=== PATIENT | male | born 1955 | race African-American/Black ===

== ENCOUNTER 2020-08-08 13:03 | Emergency (ER) | payer MEDICARE, MEDICAID, SELFPAY ==
[2020-08-08 13:04] VITALS: BP 132/89; PULSE 96; RESP 18; TEMP 37.2; O2SAT 97; BMI 20.1
--- NOTE | 2020-08-08 13:21 | XR_ITS ---
PROCEDURE: XR HAND RT MIN 3V Referring Doctor: Kelvin Jett Patient Age:65Y CLINICAL INDICATION: unable to straighten right hand out COMPARISON: No exams were available for comparison TECHNIQUE: Right hand 3 View AP, Oblique, Lateral FINDINGS: Right hand intact. No fracture or dislocation. No lytic or blastic change. There is normal mineralization. The joint spaces are well-preserved. With no remarkable arthritic changes but no erosive changes. There is flexion of the fingers most pronounced at 5th finger and 4th finger and to less degree 3rd and 2nd finger. I see no findings at the palm of the hand associated. No swelling or radiopaque foreign bodies. If anything there seems to be some relative atrophy at the soft tissues of hand compared to the fingers 3rd. IMPRESSION: No fracture or dislocation . Flexion at the fingers noted with no other associated osseous findings-. Specifically note joint spaces are well maintained throughout the hand the and visualized portions wrist.. No erosive changes Dictated by: Daniel Garcia MD 08/08/2020 16:12 Daniel Garcia MD in [place] 08/08/2020 16:12
[2020-08-08 13:43] VITALS: BP 123/84; PULSE 87; O2SAT 97
--- NOTE | 2020-08-08 14:10 | HMH.EDGENADL ---
ED Disposition Clinical Impression: Contracture, right hand Disposition: Xfer Intermediate Care Fac Condition on Discharge: Good Instructions: DI for Muscle Weakness Additional Instructions: It does appear the patient is suffering from right hand contracture, potentially Dupuytren's contracture. He needs to continue to use his right hand as much as possible to maintain function. He should follow-up with orthopedic/hand team for further treatment/recommendations. Patient return if any right hand pain, weakness, or other new concerning symptoms. Referrals: Brayden Duran MD [Primary Care Provider] - Eligio Anna MD [Staff Physician] - 7-14 days (Right hand contracture (Dupuytren's contracture possibly)) - Critical Care Critical Care Time: No Attestation: On 08/08/20, the high probability of a clinically significant, sudden or life threatening deterioration of the following system(s) required my full and direct attention, intervention and personal management. The time I documented below is in addition to time spent performing reported procedures but includes the following listed in this critical care notation. Medical Decision Making - Medical Records Medical records reviewed: Yes: I reviewed the patient's medical records. - Deo Inquiry Pt receiving controlled substance: No Vital Signs: 08/08/20 13:04 08/08/20 13:43 08/08/20 14:12 Temperature 99.0 F Temperature Source Oral Pulse Rate [Right Radial] 96 H 87 89 Respiratory Rate 18 Blood Pressure [Right Arm] 132/89 123/84 118/83 Blood Pressure Mean [Right Arm] 103 97 94 Blood Pressure Source [Right Arm] Automatic Cuff Automatic Cuff Automatic Cuff Blood Pressure Position [Right Arm] Sitting Sitting Sitting 02 Sat by Pulse Oximetry 97 97 98 Oxygen Delivery Method Room Air Room Air Room Air 08/08/20 14:51 08/08/20 15:06 Temperature Temperature Source Pulse Rate [Right Radial] 89 99 H Respiratory Rate Blood Pressure [Right Arm] 120/80 114/82 Blood Pressure Mean [Right Arm] 93 92 Blood Pressure Source [Right Arm] Automatic Cuff Automatic Cuff Blood Pressure Position [Right Arm] Sitting Sitting 02 Sat by Pulse Oximetry 97 98 Oxygen Delivery Method Room Air Room Air Orders (Tests/Meds): ORDERS Category Date Time Status XR hand RT min 3V Stat Exams 08/08/20 13:21 Taken Medical Decision Narrative: Patient 65-year-old male present with right hand complaint. Patient does present with what may be looks to be Dupuytren's contracture. This has been going on for several weeks to months it sounds. X-rays obtained in the emergency department based on my read do not show any obvious bony abnormality. Patient does have difficulty fully extending his right fourth and fifth digits but does have good hearing screen coordinator strength with no motor or sensory deficits. At this time, I do believe he would benefit from following up with hand surgery team on a nonemergent basis. He will be referred to orthopedic surgery team to follow-up within the next 1 to 2 weeks as there are some treatments that can be available to try to help him preserve as much function in his right hand as possible. Currently he does have good function in his right hand. Patient will return to the emergency department if unable to secure follow-up with orthopedics, right hand pain, or other new concerning symptoms. Assessment: Right hand contracture Disposition: Home with hand surgery follow-up General Adult HPI - General Chief complaint: Weakness Stated complaint: weakness Time Seen by Provider: 08/08/20 14:20 Mode of Arrival: EMS Limitations: No Limitations Description of Symptoms (Recalled from ER Triage Doc. by RN): Pt sent to ER for evaluation r/t not being able to straighten out his R hand. Pt reports has been going on for approx 3 weeks. Staff at [facility] pt woke up at approx 8 am unable straighten out his hand. Upon arrival to ED pt can hold hand up can move finge
[2020-08-08 14:12] VITALS: BP 118/83; PULSE 89; O2SAT 98
[2020-08-08 14:51] VITALS: BP 120/80; PULSE 89; O2SAT 97
[2020-08-08 15:06] VITALS: BP 114/82; PULSE 99; O2SAT 98
--- NOTE | 2020-08-08 15:42 | PC.NURSE ---
report given to Karrie Mccarty LPN at [facility] contacted [facility] to transport pt.
[2020-08-08 16:25] VITALS: BP 111/79; PULSE 80; RESP 17; TEMP 37.2; O2SAT 98
== END 2020-08-08 16:26 | disposition home or self-care (01) ==
PROVIDERS: Emergency Provider Emergency Medicine; PCP Internal Medicine Adolescent Medicine
DX: M24.541 Contracture, right hand (principal)
CPT/HCPCS: 73130; 99284

== ENCOUNTER → 2020-09-27 10:32 | Outpatient (CLI) | payer MEDICARE, MEDICAID, SELFPAY ==
--- NOTE | 2020-09-27 10:38 | FL_ITS ---
PROCEDURE: FL BARIUM SWALLOW MODIFIED CLINICAL INDICATION: DYSPHAGIA COMPARISON: No exams were available for comparison TECHNIQUE: Patient administered varying consistencies of barium contrast, while viewed in lateral position under real-time fluoroscopy with cine recording. FLUOROSCOPY TIME:2.43 seconds. The study was performed in conjunction with speech pathologist. Please see that report & recommendations. FINDINGS: Patient was given varying consistencies of barium. Premature spillage of barium interval likely and piriform sinuses is noted with thin liquids with cup, pureed food and solids. No evidence of aspiration is noted. IMPRESSION: Premature spillage of barium into piriform sinuses and vallecula. No evidence of aspiration or penetration to the cords. Please see speech pathologist report and recommendations. Dictated by: Chayito Anna 09/28/2020 10:56 Chayiot Anna in [facility] 09/28/2020 10:56
--- NOTE | 2020-09-27 11:34 | HMH.SLMBS2 ---
Speech & Language Evaluation Speech/Language Mod Barium Swallow Start: 09/27/20 11:20 Freq: once Status: Complete Protocol: Document 09/27/20 11:20 SHAWN (Rec: 09/27/20 11:34 SHAWN [id number]) General Information General Current Food Consistancy NPO Dentition Edentulous Oxygen Status Room Air Facial Symmetry Symmetrical Patient Orientation Person,Place Communication Ability No Impairment MBS Recommendations Diet Dietary Recommendations Pureed,Thin Liquids Treatment/Strategies Treatment Recommendation Resistive Sucking Exer.,Base of Tongue Exercises,Compens. Strategy Educat. Strategy/Precaution Recommend Sitting Upright (90 deg),No Straw,Small Bites and Sips, Alternate Liquids/Solids Mod Barium Swallow Impressions Summary and Impressions Oral Phase Impression Mild Impairment Oral Phase Summary Mr. Stafford was given the following consistencies: thins via straw and open cup, pureed, mechanical soft, and pill with thin wash. Mr. Stafford did exhibit difficulty sucking from a straw. Pharyngeal Phase Summary Mr. Stafford exhibited premature spillage over the back of the tongue with all consistencies into valleculae and pyriform sinuses. No aspiration noted during evaluation. He is at risk for fatigue due to prolonged NPO status. It is recommended that he be placed on pureed diet with thin liquids. Speech/Language MBS Assessment/Goals/Plan Assessment Date of Evaluation: 09/27/20 Evaluation Type Initial Certification Assessment/Problems Determine least restrictive diet Does Patient Qualify for Service No Qualify/Failure Comment Patient will be seen by [facility]. Plan Pt/Guardian verbally ack understanding Yes of dx/prognosis/goals G -code Required No Mod Barium Swallow Setup Exam Setup Radiologist Candelario Borrego Level of Consciousness Awake,Alert,Appropriate, Follows Commands Position (degrees) 90 Mod Barium Swallow-Lat View Textures Lateral View Food Presentation Thin Liquid via Cup,Thin
== END ==
PROVIDERS: PCP Internal Medicine Adolescent Medicine; Visit Provider Internal Medicine Adolescent Medicine
DX: R13.10 Dysphagia, unspecified (principal)
CPT/HCPCS: 70371; 92611

== ENCOUNTER → 2020-10-25 07:32 | Outpatient (CLI) | payer MEDICARE, MEDICAID, SELFPAY ==
[2020-10-25 08:11] LABS: Basophils % 0.5 % (0.1-2.0); Eosinophils # 0.2 K/mm3 (0.0-0.4); Eosinophils % 2.4 % (0.1-12.0); Hematocrit 41.2 % (42.0-52.0); Hemoglobin 13.3 g/dL (14.1-18.0); Lymphocytes # 2.4 K/mm3 (0.7-4.5); Lymphocytes % 29.2 % (10-50); Mean Corpuscular HGB Conc 32.3 g/dL (31.8-35.4); Mean Corpuscular Hemoglobin 29.1 pg (27.0-31.2); Mean Corpuscular Volume 90.1 fl (80-94); Mean Platelet Volume 7.5 fl (7.4-10.4); Monocytes # 0.4 K/mm3 (0.1-1.0); Monocytes % 5.3 % (1.7-9.3); Neutrophils # 5.1 K/mm3 (1.8-7.8); Neutrophils % 62.6 % (37.0-80.0); Platelet Count 279 K/mm3 (142-424); Red Blood Count 4.57 M/mm3 (4.60-6.20); Red Cell Distribution Width 14.3 % (11.5-17.5); White Blood Count 8.1 K/mm3 (4.8-10.8)
[2020-10-25 08:16] LABS: Chloride 98 mmol/L (98-107); Potassium 3.8 mmoL/L (3.5-5.1); Sodium 139 mmol/L (136-145)
[2020-10-25 08:18] LABS: Alanine Aminotransferase 18 U/L (12-78); Aspartate Amino Transferase 30 U/L (17-59); Blood Urea Nitrogen 12 mg/dl (9-20); Estimated Glomerular Filt Rate 167 ml/min (>60); GFR (African American) 202 ML/MIN (>60)
[2020-10-25 08:19] LABS: Albumin Level 4.8 g/dl (3.5-5.0); Albumin/Globulin Ratio 1.2 (1.1-1.8); Alkaline Phosphatase 119 U/L (38-126); Anion Gap 13.8 mEq/L (5-15); Bilirubin,Total 0.6 mg/dl (0.2-1.3); Calcium 10.1 mg/dl (8.4-10.2); Carbon Dioxide 31 mmol/L (22.0-30.0); Glucose 108 mg/dl (74-100); Total Protein,Serum 8.8 g/dl (6.3-8.2)
--- NOTE | 2020-10-25 08:32 | MR_ITS ---
PROCEDURE INFORMATION: Exam: MR Chest Without and With Contrast; Brachial Plexus Exam date and time: 10/25/2020 8:32 AM Age: 65 years old Clinical indication: Abnormal findings; Other: Neurological exam; Patient HX: Unable to bend fingers in lt hand. Unable to straighten fingers in RT hand; Additional info: Muscle weakness, contracture TECHNIQUE: Imaging protocol: MR chest without and with intravenous contrast. Exam focused on the brachial plexus. Contrast material: PROHANCE; Contrast volume: 9 ml; Contrast route: INTRAVENOUS (IV); COMPARISON: MR CERVICAL SPINE WO CON 10/25/2020 8:53 AM FINDINGS: Nerves: Unremarkable visualized nerves and brachial plexus. Soft tissues: Unremarkable Bones/joints: Unremarkable. Other findings: Marked distension of the visualized esophagus. IMPRESSION: Unremarkable brachial plexus.
--- NOTE | 2020-10-25 08:32 | MR_ITS ---
PROCEDURE: MR CERVICAL SPINE WO CON CLINICAL INDICATION: abnormal neurological exam Unable to bend fingers in lt hand. Unable to straighten fingers in rt hand. Weakness bilateral arms. No prior. COMPARISON: No exams were available for comparison TECHNIQUE: Standard multiplanar multiecho sequences are performed without contrast. 3-D MIP and myelographic images are also rendered and reviewed FINDINGS: There is normal alignment. Craniocervical junction has an unremarkable appearance. C2-C3: There is prominence of the posterior longitudinal ligament causing canal stenosis at 9 mm with minimal flattening of the cord centrally and anteriorly. C3-C4: Degenerative disc disease with broad-based bulging disc/disc osteophyte complex. There is 3 mm retrolisthesis of C3. There is canal stenosis at this level at 9 mm with minimal flattening of the cord anteriorly. Bilateral lateral recess and foraminal narrowing noted. C4-C5: Minimal endplate ridging slightly eccentric toward the left with mild bilateral lateral recess narrowing slightly greater on the left. C5-C6: Minimal bulging disc. C6-C7: Unremarkable. C7-T1: Unremarkable. IMPRESSION: 1. There are degenerative changes at C2-C3, C3-C4, and C4-C5 as detailed above. There is canal stenosis at C2-C3 and C3-C4. Please see above for detailed description. 2. No extruded herniated disc Dictated by: Candelario Borrego MD 10/26/2020 15:48 Candelario Borrego MD in [place] 10/26/2020 15:48
[2020-10-25 08:34] LABS: Erythrocyte Sedimentation Rate 27 mm/hr (0-20)
[2020-10-25 08:50] LABS: Thyroid Stimulating Hormone 4.22 uIU/mL (0.465-4.68)
[2020-10-25 10:08] LABS: Vitamin B12 732 pg/mL (239-931)
[2020-10-25 10:12] LABS: Folate > 20.00 ng/mL
[2020-10-27 14:24] LABS: Albumin 3.8 g/dL (2.9-4.4); Alpha-1-Globulin 0.3 g/dL (0.0-0.4); Gamma Globulin 1.5 g/dL (0.4-1.8); Protein, Total 8.3 g/dL (6.0-8.5)
[2020-10-27 15:13] LABS: Interpretation(See Below) Comment: (.); Rapid Plasma Reagin Ab Titer Non Reactive (NonRea<1:1)
[2020-10-29 10:12] LABS: Vitamin B1 177.9 nmol/L (66.5-200.0)
[2020-11-27 11:14] LABS: AChR Blocking Abs 21
[2020-11-27 11:16] LABS: AChR Modulating Ab <12; Anti-Striation (muscle) Abs NEGATIVE
== END ==
PROVIDERS: PCP Internal Medicine Adolescent Medicine; Visit Provider Nurse Practitioner Family
DX: G62.9 Polyneuropathy, unspecified (principal); M62.81 Muscle weakness (generalized); Z68.1 Body mass index [BMI] 19.9 or less, adult; R25.8 Other abnormal involuntary movements; R29.2 Abnormal reflex
CPT/HCPCS: 36415; 72141; 73220; 76376; 80053; 82525; 82607; 82746; 84155; 84165; 84238; 84425; 84443; 85025; 85651; 86255; 86334; 86592; 86618; A9576

== ENCOUNTER → 2021-08-26 11:43 | Outpatient (CLI) | payer MEDICARE, MEDICAID, SELFPAY ==
--- NOTE | 2021-08-26 11:49 | FL_ITS ---
FINAL REPORT CLINICAL HISTORY: check feeding tube placement FINDINGS: Fluoroscopy was utilized while contrast was injected through a patients recently replaced gastrostomy tube. Injection of the tube demonstrates that the gastrostomy tube is within the stomach. There is no extrravasation of contrast. IMPRESSION: Appropriately placed gastrostomy tube Reviewed, Interpreted and Dictated by Luis Miguel Retana III, MD Transcribed by EDISON Babcock Authenticated by Luis Miguel Retana III, MD on 09/05/2021 07:59:[address] [facility]
== END ==
PROVIDERS: PCP Internal Medicine Adolescent Medicine; Visit Provider Surgery
DX: Z78.9 Other specified health status (principal)
CPT/HCPCS: 49465

== ENCOUNTER 2022-10-28 21:57 | Emergency (ER) | payer MEDICARE, MEDICAID, SELFPAY ==
[2022-10-28 21:57] VITALS: BP 152/101; PULSE 109; RESP 16; TEMP 36.7; O2SAT 99; BMI 20.6
[2022-10-28 22:21] LABS: Basophils % 0.2 % (0.1-2.0); Eosinophils # 0.3 K/mm3 (0.0-0.4); Eosinophils % 1.4 % (0.1-12.0); Hematocrit 49.3 % (42.0-52.0); Lymphocytes # 2.1 K/mm3 (0.7-4.5); Lymphocytes % 11.4 % (10-50); Mean Corpuscular HGB Conc 32.5 g/dL (31.8-35.4); Mean Corpuscular Hemoglobin 29.9 pg (27.0-31.2); Mean Corpuscular Volume 91.9 fl (80-94); Mean Platelet Volume 7.7 fl (7.4-10.4); Monocytes # 0.7 K/mm3 (0.1-1.0); Neutrophils # 14.9 K/mm3 (1.8-7.8); Platelet Count 404 K/mm3 (142-424); Red Blood Count 5.36 M/mm3 (4.60-6.20); Red Cell Distribution Width 13.9 % (11.5-17.5)
[2022-10-28 22:22] LABS: Chloride 94 mmol/L (98-107); Sodium 143 mmol/L (136-145)
[2022-10-28 22:23] LABS: Potassium 3.8 mmoL/L (3.5-5.1)
[2022-10-28 22:25] LABS: Alanine Aminotransferase 46 U/L (12-78); Albumin Level 4.9 g/dl (3.5-5.0); Albumin/Globulin Ratio 0.9 (1.1-1.8); Alkaline Phosphatase 147 U/L (38-126); Anion Gap 15.8 mEq/L (5-15); Aspartate Amino Transferase 56 U/L (17-59); Bilirubin,Total 0.9 mg/dl (0.2-1.3); Blood Urea Nitrogen 22 mg/dl (9-20); Carbon Dioxide 37 mmol/L (22.0-30.0); Creatinine Clearance Estimated 59 mL/min (50-200); Estimated Glomerular Filt Rate 112 ml/min (>60); GFR (African American) 136 ML/MIN (>60); Globulin 5.5 g/dL (1.3-3.2); Total Protein,Serum 10.4 g/dl (6.3-8.2)
[2022-10-28 22:26] LABS: Calcium 9.9 mg/dl (8.4-10.2); Glucose 160 mg/dl (74-100); MANUAL DIFFERENTIAL MANUAL DIFFERENTIAL (MANUAL DIFF)
[2022-10-28 22:30] VITALS: BP 135/94; PULSE 112; O2SAT 96
--- NOTE | 2022-10-28 22:30 | CT_ITS ---
PROCEDURE INFORMATION: Exam: CTA Abdomen and Pelvis With Contrast Exam date and time: 10/28/2022 10:51 PM Age: 67 years old Clinical indication: Other: Distention; Additional info: Distention, possible gi bleed TECHNIQUE: Imaging protocol: Computed tomographic angiography of the abdomen and pelvis with contrast. 3D rendering (Not supervised by radiologist): MIP and/or 3D reconstructed images were created by the technologist. Radiation optimization: All CT scans at this facility use at least one of these dose optimization techniques: automated exposure control; mA and/or kV adjustment per patient size (includes targeted exams where dose is matched to clinical indication); or iterative reconstruction. Contrast material: ISOVUE; Contrast volume: 100 ml; Contrast route: INTRAVENOUS (IV); REPORTING DATA: Count of CT and Cardiac NM exams in prior 12 months: This patient has received 0 known CTs and 0 known cardiac nuclear medicine studies in the 12 months prior to the current study. COMPARISON: MR BRACHIAL PLEXUS RT W/WO CON 10/25/2020 9:32 AM FINDINGS: Tubes, catheters and devices: Percutaneous gastrostomy tube appears to be in good position. Aorta: No aortic aneurysm. No aortic dissection. Celiac trunk and mesenteric arteries: No occlusion or significant stenosis. Renal arteries: No occlusion or significant stenosis. Right iliac arteries: No occlusion or significant stenosis. Left iliac arteries: No occlusion or significant stenosis. Liver: No mass. Gallbladder and bile ducts: Unremarkable. No calcified stones. No ductal dilation. Pancreas: Unremarkable. No mass. No ductal dilation. Spleen: Unremarkable. No splenomegaly. Adrenal glands: Unremarkable. No mass. Kidneys and ureters: Unremarkable. No solid mass. No hydronephrosis. Stomach and bowel: Small area of density noted in the gastric antrum (axial images 36 through 38) raises concern for contrast extravasation indicating hemorrhage. A 2nd similar-appearing of dependent density in the ascending colon is noted on axial images 73 and 74. Density in the appendix and adjacent portion of the cecum has an appearance suggesting retained contrast, although hemorrhage not excluded. There is moderate sigmoid diverticulosis. No bowel wall thickening or evidence of obstruction. Appendix: No evidence of appendicitis Intraperitoneal space: Unremarkable. No free air. No significant fluid collection. Lymph nodes: Unremarkable. No enlarged lymph nodes. Urinary bladder: Unremarkable. No mass. Reproductive: Prostate gland is enlarged, measuring 5.2 cm in greatest diameter. Bones/joints: Moderate degenerative changes noted in the lumbar spine. No acute fracture. Moderate degenerative changes noted in the sacroiliac joints. Soft tissues: Unremarkable. IMPRESSION: 1. Two areas concerning for active GI bleed, one in the distal stomach and another in the ascending colon. Findings suggesting possible retained contrast in the appendix and lack of pre-contrast images makes findings equivocal, particularly in the colon. 2. Other incidental findings including prostatomegaly, sigmoid diverticulosis and chronic osseous changes. THIS REPORT CONTAINS FINDINGS THAT MAY BE CRITICAL TO PATIENT CARE. The findings were verbally communicated via telephone conference with KRISTIAN VIRK at 11:37 PM EDT on 10/28/2022. The findings were acknowledged and understood.
--- NOTE | 2022-10-28 22:32 | XR_ITS ---
PROCEDURE INFORMATION: Exam: XR Chest Exam date and time: 10/28/2022 10:57 PM Age: 67 years old Clinical indication: Other: Leukocytosis TECHNIQUE: Imaging protocol: Radiologic exam of the chest. Views: 1 view. COMPARISON: MR BRACHIAL PLEXUS RT W/WO CON 10/25/2020 9:32 AM FINDINGS: Lungs: There are findings suggesting bullous emphysema just to the right of midline in the mid chest. No significant active pulmonary infiltrate. Pleural spaces: Unremarkable. No pleural effusion. No pneumothorax. Heart/Mediastinum: Unremarkable. No cardiomegaly. Bones/joints: Unremarkable. IMPRESSION: Findings suggesting bullous emphysema. No acute disease
--- NOTE | 2022-10-28 22:37 | PC.NURSE ---
Dr. Delacruz at [facility]
[2022-10-28 22:47] LABS: Occult Blood,Stool Negative (Negative)
[2022-10-28 22:49] LABS: Eosinophils % 1 % (0-3); Lymphocytes % 12 % (10-50); Monocytes % 4 % (2-9); Neutrophils % 83 % (42-76); Total Cells Counted 100
[2022-10-28 22:50] LABS: Platelet Estimate Normal; RBC Morphology Normal
[2022-10-28 23:00] VITALS: BP 144/99; PULSE 102; O2SAT 96
--- NOTE | 2022-10-28 23:12 | HMH.EDGENADL ---
Discharge Plan Disposition Patient Disposition: Home, Self-Care Condition: Good Chief Complaint: Nausea/Vomiting/Diarrhea Prescriptions Prescriptions: No Action polyethylene glycol 3350 [Miralax] 17 gram/dose powder 17 g PO DAILY omeprazole 20 mg capsule,delayed release(DR/EC) 20 mg PO DAILY cholecalciferol (vitamin D3) 100 mcg (4,000 unit) capsule 100 mcg PO DAILY metoclopramide HCl 5 mg/5 mL solution 5 mg PO DAILY acetaminophen 500 mg capsule 500 mg PO Q6H PRN multivitamin liquid 5 ml PO DAILY Referrals Follow up/Referrals: Brayden Duran MD [Primary Care Provider] - See instructions Clinical Impressions Clinical Impression: Occult GI bleeding Instructions Patient Instructions: DI for Diarrhea and Traveler's Diarrhea -- Adult, DI for Diarrhea and Traveler's Diarrhea -- Child, DI for Nausea -- Adult, DI for Nausea -- Child Discharge ED Provider: Steven Delacruz General Adult HPI General Chief complaint: Nausea/Vomiting/Diarrhea Stated complaint: N/V Time Seen by Provider: 10/28/22 22:01 Mode of Arrival: EMS Source of Information: Patient and EMS Limitations: No Limitations Description of Symptoms (Recalled from ER Triage Doc. by RN): pt c/o vomitting and abd distention since yesterday. pt denies any abd pain History of Present Illness HPI narrative: 67yo M presents the ER from [facility] secondary to vomiting and abdominal distention. Patient reports he vomits all the time. Reports this episode began yesterday. Reports mild abdominal distention without significant pain. [facility] reported coffee-ground emesis. Patient denies. Patient reports that he just disconnected his tube feeding when he began vomiting. Related Data Home Medications Medication Instructions Recorded Confirmed acetaminophen 500 mg capsule 500 mg PO Q6H PRN 09/08/20 08/26/21 cholecalciferol (vitamin D3) 100 100 mcg PO DAILY 09/08/20 08/26/21 mcg (4,000 unit) capsule metoclopramide HCl 5 mg/5 mL oral 5 mg PO DAILY 09/08/20 08/26/21 solution omeprazole 20 mg capsule,delayed 20 mg PO DAILY 09/08/20 08/26/21 release polyethylene glycol 3350 17 17 g PO DAILY 09/08/20 08/26/21 gram/dose oral powder (Miralax) multivitamin 5 ml PO DAILY 10/18/20 08/26/21 Allergies Allergy/AdvReac Type Severity Reaction Status Date / Time No Known Allergies Allergy Verified 08/26/21 11:11 [facility] Disclaimer: The information contained in this section may have been updated after the patient was seen, as this information can be updated by other users. Social History Smoking Status: Never smoker alcohol intake: former substance use type: denies use current occupational status: disabled Travel in the last 8 weeks: None household members: caregiver housing: half-way ROS Obtained: Yes Systems reviewed as appropriate & no additional complaints except as documented Physical Exam General General appearance: alert and in no apparent distress Head Head exam: atraumatic Eye Eye exam: Present normal appearance Neck Neck exam: Present trachea midline Chest Chest inspection: Present symmetric chest wall rise Respiratory Respiratory exam: Present normal lung sounds bilaterally; Absent respiratory distress Cardiovascular Cardiovascular exam: Present regular rate, normal rhythm and normal heart sounds Abdominal Exam Abdominal exam: Present soft, distention (Mild) and normal bowel sounds; Absent tenderness, rebound or rigidity Extremities Exam Extremities exam: Present normal capillary refill; Absent tenderness Neurological Exam Neurological exam: Present alert and oriented X3 Psychiatric Psychiatric exam: Present normal affect Skin Skin exam: Present warm and dry Medical Decision Making Medical Records Medical records reviewed: Yes I reviewed the patient's medical records. Deo Delgadillo Pt receiving controlled substa
[2022-10-28 23:30] VITALS: BP 161/113; PULSE 110; O2SAT 97
--- NOTE | 2022-10-28 23:36 | PC.NURSE ---
Dr. Delacruz s/w MARY JANE
--- NOTE | 2022-10-28 23:43 | PC.NURSE ---
Dr. Delacruz s/w Dr. Franco
[2022-10-29] VITALS: BP 151/104; PULSE 110; O2SAT 97
[2022-10-29 00:24] LABS: Occult Blood,Gastric Fluid Positive (Negative)
--- NOTE | 2022-10-29 00:25 | PC.NURSE ---
Dr. Roger foster
[2022-10-29 00:39] LABS: Coronavirus 19, PCR Not Detected (NotDetected); Influenza A, PCR Not Detected (NotDetected); Influenza B, PCR Not Detected (NotDetected)
[2022-10-29 00:39] LABS: Microscopic, Urine URINE MICROSCOPIC (MICROSCOPIC)
--- NOTE | 2022-10-29 00:50 | PC.NURSE ---
repaged dr valentine @ this time
--- NOTE | 2022-10-29 00:51 | PC.NURSE ---
on phone with dr valentine
[2022-10-29 00:52] VITALS: BP 135/98; PULSE 108; RESP 20; TEMP 36.8; O2SAT 98
[2022-10-29 00:59] LABS: Appearance,Urine CLEAR (Clear); Bilirubin,Urine Negative (Negative); Blood, Urine Negative (Negative); Color,Urine YELLOW (Yellow); Glucose,Urine (UA) Negative (Negative); Ketones,Urine Negative (Negative); Leukocyte Esterase,Urine Negative (Negative); Nitrate,Urine Negative (Negative); Protein,Urine 1+ (Negative); Specific Gravity, Urine <= 1.005 (1.005-1.030); Urobilinogen,Urine 0.2 EU/dl (0.2)
--- NOTE | 2022-10-29 01:02 | PC.NURSE ---
Called and gave report to Carolina OLIVAREZ @ [facility]
[2022-10-29 01:11] LABS: Squamous Epithelial Cell,Urine Occasional #/hpf (0-5)
== END 2022-10-29 02:50 | disposition home or self-care (01) ==
PROVIDERS: Emergency Provider Family Medicine; PCP Internal Medicine Adolescent Medicine
DX: K92.2 Gastrointestinal hemorrhage, unspecified (principal); R11.2 Nausea with vomiting, unspecified; R19.7 Diarrhea, unspecified
CPT/HCPCS: 36415; 71045; 74174; 80053; 81001; 82272; 85007; 85025; 86850; 99285; C9803; G0328; Q9967; U0003; U0005

== ENCOUNTER → 2022-10-31 08:15 | Outpatient (CLI) | payer MEDICARE, MEDICAID, SELFPAY | PROVIDERS: PCP Internal Medicine Adolescent Medicine; Visit Provider Internal Medicine Adolescent Medicine | DX: K92.2 Gastrointestinal hemorrhage, unspecified (principal) ==

== ENCOUNTER → 2022-10-31 11:20 | Outpatient (CLI) | payer MEDICARE, MEDICAID, SELFPAY ==
[2022-10-31 11:37] LABS: Basophils # 0.1 K/mm3 (0-0.2); Basophils % 0.5 % (0.1-2.0); Eosinophils # 0.1 K/mm3 (0.0-0.4); Eosinophils % 0.8 % (0.1-12.0); Hematocrit 48.1 % (42.0-52.0); Hemoglobin 15.7 g/dL (14.1-18.0); Lymphocytes # 2.9 K/mm3 (0.7-4.5); Lymphocytes % 27.7 % (10-50); Mean Corpuscular HGB Conc 32.6 g/dL (31.8-35.4); Mean Corpuscular Hemoglobin 30.2 pg (27.0-31.2); Mean Corpuscular Volume 92.6 fl (80-94); Mean Platelet Volume 7.8 fl (7.4-10.4); Monocytes # 0.7 K/mm3 (0.1-1.0); Monocytes % 6.8 % (1.7-9.3); Neutrophils # 6.8 K/mm3 (1.8-7.8); Neutrophils % 64.2 % (37.0-80.0); Platelet Count 378 K/mm3 (142-424); Red Cell Distribution Width 13.6 % (11.5-17.5); White Blood Count 10.6 K/mm3 (4.8-10.8)
== END ==
PROVIDERS: PCP Internal Medicine Adolescent Medicine; Visit Provider Internal Medicine Adolescent Medicine
DX: K92.2 Gastrointestinal hemorrhage, unspecified (principal)
CPT/HCPCS: 85025

== ENCOUNTER → 2023-05-07 12:03 | Outpatient (CLI) | payer MEDICARE, MEDICAID, SELFPAY ==
[2023-05-07 12:39] LABS: Hematocrit 39.3 % (42.0-52.0); Hemoglobin 12.5 g/dL (14.1-18.0); Mean Corpuscular HGB Conc 31.9 g/dL (31.8-35.4); Mean Corpuscular Hemoglobin 23.8 pg (27.0-31.2); Mean Corpuscular Volume 74.6 fl (80-94); Red Blood Count 5.26 M/mm3 (4.60-6.20); White Blood Count 10.5 K/mm3 (4.8-10.8)
[2023-05-07 12:40] LABS: Basophils # 0.1 K/mm3 (0-0.2); Basophils % 0.4 % (0.1-2.0); Eosinophils # 0.2 K/mm3 (0.0-0.4); Eosinophils % 1.8 % (0.1-12.0); Lymphocytes # 2.2 K/mm3 (0.7-4.5); Lymphocytes % 20.8 % (10-50); Mean Platelet Volume 8.3 fl (7.4-10.4); Monocytes # 0.7 K/mm3 (0.1-1.0); Monocytes % 7.1 % (1.7-9.3); Neutrophils # 7.3 K/mm3 (1.8-7.8); Neutrophils % 69.9 % (37.0-80.0); Platelet Count 425 K/mm3 (142-424)
== END ==
PROVIDERS: PCP Nurse Practitioner Family; Visit Provider Nurse Practitioner Family
DX: J44.9 Chronic obstructive pulmonary disease, unspecified (principal)
CPT/HCPCS: 85025

== ENCOUNTER 2023-09-05 07:51 | Outpatient (CLI) | payer MEDICARE, MEDICAID, SELFPAY ==
[2023-09-05 08:07] LABS: Basophils % 0.4 % (0.1-2.0); Eosinophils # 0.1 K/mm3 (0.0-0.4); Eosinophils % 0.6 % (0.1-12.0); Hematocrit 41.7 % (42.0-52.0); Hemoglobin 13.3 g/dL (14.1-18.0); Lymphocytes # 1.7 K/mm3 (0.7-4.5); Mean Corpuscular HGB Conc 31.9 g/dL (31.8-35.4); Mean Corpuscular Hemoglobin 25.4 pg (27.0-31.2); Mean Corpuscular Volume 79.7 fl (80-94); Mean Platelet Volume 7.3 fl (7.4-10.4); Monocytes # 1.1 K/mm3 (0.1-1.0); Monocytes % 9.5 % (1.7-9.3); Neutrophils # 8.6 K/mm3 (1.8-7.8); Neutrophils % 74.6 % (37.0-80.0); Platelet Count 358 K/mm3 (142-424); Red Blood Count 5.23 M/mm3 (4.60-6.20); Red Cell Distribution Width 19.6 % (11.5-17.5); White Blood Count 11.6 K/mm3 (4.8-10.8)
[2023-09-05 08:28] LABS: Anion Gap 16.1 mEq/L (5-15); Blood Urea Nitrogen 17 mg/dl (9-20); Calcium 9.9 mg/dl (8.4-10.2); Carbon Dioxide 30 mmol/L (22.0-30.0); Chloride 95 mmol/L (98-107); Estimated Glomerular Filt Rate 134 ml/min (>60); GFR (African American) 162 ML/MIN (>60); Glucose 154 mg/dl (74-100); Potassium 4.1 mmoL/L (3.5-5.1); Sodium 137 mmol/L (136-145)
== END 2023-09-05 23:59 ==
LOC: LAB.DROPOF 07:53
PROVIDERS: PCP Internal Medicine Adolescent Medicine; Visit Provider Internal Medicine Adolescent Medicine
DX: K22.2 Esophageal obstruction (principal)
CPT/HCPCS: 80048; 85025

== ENCOUNTER 2023-09-05 19:03 | Emergency (ER) | payer MEDICARE, MEDICAID, SELFPAY ==
[2023-09-05 19:04] VITALS: BP 169/96; PULSE 97; RESP 15; TEMP 36.8; O2SAT 98; BMI 22.1
--- NOTE | 2023-09-05 19:27 | CT_ITS ---
PROCEDURE INFORMATION: Exam: CT Abdomen And Pelvis With Contrast Exam date and time: 09/05/2023 8:01 PM Age: 68 years old Clinical indication: Nausea and vomiting and other: Diarrhea; Additional info: Nausea/vomiting/diarrhea TECHNIQUE: Imaging protocol: Computed tomography of the abdomen and pelvis with contrast. Radiation optimization: All CT scans at this facility use at least one of these dose optimization techniques: automated exposure control; mA and/or kV adjustment per patient size (includes targeted exams where dose is matched to clinical indication); or iterative reconstruction. Contrast material: ISOVUE; Contrast volume: 75 ml; Contrast route: IV; COMPARISON: CT ANGIO ABDOMEN PELVIS 10/28/2022 10:51 PM FINDINGS: Tubes, catheters and devices: Gastrostomy tube redemonstrated. Lungs: Lung bases are clear. Liver: Normal. No mass. Gallbladder and bile ducts: Normal. No calcified stones. No ductal dilation. Pancreas: Normal. No ductal dilation. Spleen: Normal. No splenomegaly. Adrenal glands: Normal. No mass. Kidneys and ureters: Normal. No hydronephrosis. Stomach and bowel: Changes noted at the gastroesophageal junction which is prominent similar to previous may reflect changes of a Anncy fundoplication versus redundant mucosa from a collapsed hiatal hernia. There is fluid distended and dilated partially included distal esophagus with associated wall thickening. This area not included in field of view on the previous study. GI tract structures otherwise unremarkable with no evident wall thickening allowing for incomplete distention. Appendix: Appendix is normal. No evidence of appendicitis. Intraperitoneal space: Unremarkable. No free air. No significant fluid collection. Vasculature: Unremarkable. No abdominal aortic aneurysm. Lymph nodes: Unremarkable. No enlarged lymph nodes. Urinary bladder: Unremarkable as visualized. Reproductive: Unremarkable as visualized. Bones/joints: Unremarkable. No acute fracture. Soft tissues: Unremarkable. IMPRESSION: 1. Distorted appearance of the GE junction similar to previous that may reflect postsurgical changes related to a Nancy fundoplication. If no history of surgery than finding might reflect redundant mucosa potentially due to a collapsed hiatal hernia. 2. Dilated fluid distended distal esophagus with wall thickening suggesting reflux or dysmotility with esophagitis. Developing obstruction at the GE junction that might be due to a stricture or possibly achalasia is also a consideration. Further assessment of these findings with nonemergent endoscopy or barium swallow should be considered.
--- NOTE | 2023-09-05 19:29 | ED_ITS ---
Discharge Plan Disposition Patient Disposition: Xfer Prescriptions Prescriptions: New ondansetron 4 mg tablet,disintegrating 4 mg PO Q8H PRN (Reason: nausea and vomiting) 4 Days Qty: 12 0RF No Action polyethylene glycol 3350 [Miralax] 17 gram/dose powder 17 g PO DAILY omeprazole 20 mg capsule,delayed release(DR/EC) 20 mg PO DAILY cholecalciferol (vitamin D3) 100 mcg (4,000 unit) capsule 100 mcg PO DAILY metoclopramide HCl 5 mg/5 mL solution 5 mg PO DAILY acetaminophen 500 mg capsule 500 mg PO Q6H PRN multivitamin Liquid 5 ml PO DAILY Referrals Follow up/Referrals: Brayden Duran MD [Primary Care Provider] - See instructions Activity Restrictions/Add. Instructions Additional Instructions/Restrictions: You were evaluated in the emergency department today. At this time, your lipase is elevated, suggestive of pancreatitis. CT scan does not show any pancreatic cyst, abscess, or complication of this. Given that your symptoms are improved after medications, we feel that you are appropriate for discharge home. Your esophagus shows worsened scarring and narrowing, which could be consistent with achalasia, for which we recommend close outpatient follow-up. You may want to avoid oral intake while your symptoms are severe and stick with G-tube feeds slowly as tolerated. Use the medications prescribed to you as needed for symptoms. We do recommend continuance of the PPI that you are on, omeprazole. Return for new or worsening symptoms. Clinical Impressions Clinical Impression: Acute pancreatitis, Esophagitis, Chronic scarring of esophagus Instructions Patient Instructions: Achalasia, DI for Pancreatitis, DI for Nausea -- Adult, DI for Esophagitis Discharge ED Provider: Eunice Díaz General Adult HPI General Chief complaint: Nausea/Vomiting/Diarrhea Stated complaint: possible GI bleed Time Seen by Provider: 09/05/23 19:24 History of Present Illness HPI narrative: This patient is a 68-year-old male with a history of esophageal dysphagia with G-tube presenting to the emergency department for evaluation with concern for nausea, vomiting, and diarrhea that started today. He states he has not been able to tolerate his feeds or any by mouth intake, which he does sometimes. Emesis is nonbloody nonbilious and stool is nonbloody. He denies any significant pain associated. No fevers, chest pain, shortness of breath, or other concerns noted. Per nursing facility, he requested to come in for evaluation. Related Data Home Medications Medication Instructions Recorded Confirmed acetaminophen 500 mg capsule 500 mg PO Q6H PRN 09/08/20 08/26/21 cholecalciferol (vitamin D3) 100 100 mcg PO DAILY 09/08/20 08/26/21 mcg (4,000 unit) capsule metoclopramide HCl 5 mg/5 mL oral 5 mg PO DAILY 09/08/20 08/26/21 solution omeprazole 20 mg capsule,delayed 20 mg PO DAILY 09/08/20 08/26/21 release polyethylene glycol 3350 17 17 g PO DAILY 09/08/20 08/26/21 gram/dose oral powder (Miralax) multivitamin 5 ml PO DAILY 10/18/20 08/26/21 Previous Rx's Medication Instructions Recorded ondansetron 4 mg disintegrating 4 mg PO Q8H PRN nausea and 09/05/23 tablet vomiting 4 days #12 tabs Allergies Allergy/AdvReac Type Severity Reaction Status Date / Time No Known Allergies Allergy Verified 08/26/21 11:11 [facility] Disclaimer: The information contained in this section may have been updated after the patient was seen, as this information can be updated by other users. Social History Smoking Status: Never smoker alcohol intake: former substance use type: denies use current occupational status: disabled Travel in the last 8 weeks: None household members: caregiver housing: [facility] ROS Obtained: Yes All systems reviewed & no additional complaints except as documented Physical Exam General General appearance: alert and in no apparent distress Head Head exam: atraumatic and normocephalic Eye Eye exam: Present normal appearance, PERRL and EOMI ENT ENT exam: Present normal exam, normal oropharynx, mucous membranes moist and normal external ear exam Neck Neck exam: Present normal inspection, full ROM and trachea midline; Absent tenderness Chest Chest inspection: Present normal inspection and symmetric chest wall rise; Absent tenderness Respiratory Respiratory exam: Present normal lung sounds bilaterally; Absent respiratory distress, wheezes, stridor or accessory muscle use Cardiovascular Cardiovascular exam: Present regular rate and normal rhythm Abdominal Exam Abdominal exam: Present soft, tenderness (mild generalized) and other (G-tube in place); Absent distention, guarding, rebound or rigidity Extremities Exam Extremities exam: Present normal inspection, full ROM and normal capillary refill; Absent tenderness or edema Back Exam Back exam: Present normal inspection and full ROM; Absent tenderness Neurological Exam Neurological exam: Present alert, oriented X3, CN II-XII intact and normal gait; Absent motor sensory deficit Psychiatric Psychiatric exam: Present normal affect and normal mood Skin Skin exam: Present warm and dry Medical Decision Making Medical Records Medical records reviewed: Yes I reviewed the patient's medical records. Deo Inquiry Pt receiving controlled substance: No Vital Signs: 09/05/23 19:04 Temperature 98.3 F Temperature Source Oral Pulse Rate [Left] 97 H Respiratory Rate 15 Blood Pressure [Right Arm] 169/96 H Blood Pressure Mean [Right Arm] 120 Blood Pressure Source [Right Arm] Automatic Cuff 02 Sat by Pulse Oximetry 98 Oxygen Delivery Method Room Air Lab Data Lab results reviewed: Yes I reviewed the patient's lab results. Lab Results 09/05/23 19:25: WBC 12.1 H, RBC 5.36, Hgb 13.4 L, Hct 43.1, MCV 80.4, MCH 25.0 L , MCHC 31.1 L, RDW 19.5 H, Plt Count 377, MPV 7.9, Neut % (Auto) 81.0 H, Lymph % (Auto) 11.2, [place] % (Auto) 6.7, Eos % (Auto) 0.9, Baso % (Auto) 0.3, Neut # (Auto) 9.8 H, Lymph # (Auto) 1.4, [place] # (Auto) 0.8, Eos # (Auto) 0.1, Baso # (Auto) 0.0, Sodium 133 L, Potassium 4.6, Chloride 93 L, Carbon Dioxide 30, Anion Gap 14.6, BUN 17, Creatinine 0.50 L, Estimated GFR 165, Est GFR ( Amer) 200 D, Glucose 149 H, Calcium 9.6, Total Bilirubin 0.7, AST 45, ALT 30, Alkaline Phosphatase 108, Total Protein 8.3 H, Albumin 4.6, Globulin 3.7 H, Albumin/Globulin Ratio 1.2, Lipase 758 H 09/05/23 20:18: Urine Color Yellow, Urine Appearance Clear, Urine pH 8.0, Ur Specific [place] 1.010, Urine Protein Negative, Urine Glucose (UA) 1+, Urine Ketones Negative, Urine Blood Negative, Urine Nitrate Negative, Urine Bilirubin Negative, Urine Urobilinogen 0.2, Ur Leukocyte Esterase Negative, Amorphous Sediment 1+, Urine Bacteria Trace, SARS-CoV-2 (PCR) Not detected, Influenza A Untype (PCR) Not detected, Influenza Type B (PCR) Not detected 09/05/23 19:25 09/05/23 19:25 Orders (Tests/Meds): ED MEDICATIONS Generic Name Dose Route Start Last Admin Trade Name Freq PRN Reason Stop Dose Admin Sodium Chloride 10 ml 09/05/23 20:09 09/05/23 20:10 Sodium Chloride 0.9% 10ml Syr (Rad Only) IV 10/05/23 20:08 10 ml NEEDED PRN Administration Maintain IV Site Sodium Chloride 8 ml 09/05/23 22:35 Sodium Chloride 0.9% 10ml Vial IV 10/05/23 22:34 NEEDED PRN dilute pepcid Discontinued Medications Generic Name Dose Route Start Last Admin Trade Name Freq PRN Reason Stop Dose Admin Acetaminophen 1,000 mg 09/05/23 19:27 09/05/23 19:41 Acetaminophen 1,000mg/100ml Vial IV 09/05/23 19:28 1,000 mg ONCE ONE Administration Famotidine 20 mg 09/05/23 22:35 09/05/23 23:16 Famotidine 20mg/2ml Vial IV 09/05/23 22:36 20 mg ONCE ONE Administration Lactated Ringer's 1,000 mls @ 999 mls/hr 09/05/23 19:27 09/05/23 19:41 Lactated Ringer's 1000 Ml Bag IV 09/05/23 20:27 999 mls/hr .Q1H1M ONE Administration Iopamidol 75 ml 09/05/23 20:09 09/05/23 20:10 Iopamidol-370 (76%);100ml Bottle IV 09/05/23 20:10 75 ml ONCE ONE Administration Ondansetron HCl 4 mg 09/05/23 19:27 09/05/23 19:41 Ondansetron 4mg/2ml Vial IV 09/05/23 19:28 4 mg ONCE ONE Administration Ondansetron HCl 4 mg 09/05/23 22:35 09/05/23 23:16 Ondansetron 4mg/2ml Vial IV 09/05/23 22:36 4 mg ONCE ONE Administration ORDERS Category Date Time Status CT abdomen pelvis w con Stat Cat Scan 09/05/23 19:27 Completed Complete Blood Count Auto Diff Stat Lab 09/05/23 19:25 Completed Comprehensive Metabolic Panel Stat Lab 09/05/23 19:25 Completed Lipase Stat Lab 09/05/23 19:25 Completed Rapid PCR Covid and Flu A/B Stat Lab 09/05/23 20:18 Completed Urinalysis and Microscopic Stat Lab 09/05/23 20:18 Completed Medical Decision Narrative: In summary, this patient is a 68-year-old male presenting to the Emergency Department for evaluation of nausea, vomiting, and diarrhea. Differential diagnoses considered include but are not limited to gastroenteritis, colitis, bowel obstruction, pancreatitis. Ruling out the most morbid conditions drove assessment. On exam, the patient is nontoxic-appearing. Abdominal exam demonstrates mild abdominal tenderness that is generalized without significant localizable tenderness. No rebound or guarding. Workup included CBC, CMP, lipase, urinalysis, and CT abdomen pelvis with IV contrast. He is given a bolus of IV fluids as well as IV Zofran and acetaminophen. I independently interpreted CT scan prior to the radiologist read and noted esophageal thickening with some fluid in the distal esophagus without other acute concerns such as pancreatic pseudocyst or abscess. Please see their read for final interpretation. Labs were obtained that demonstrated elevated lipase consistent with pancreatitis and very mild leukocytosis. On reassessment, patient had good improvement after administration of interventions above. He appears to have uncomplicated pancreatitis based on workup. He also has chronic findings in his distal esophagus. I had an interactive discussion with radiologist who advised this had not significantly changed and appear to be consistent with achalasia. Patient already has a G- tube in place given his chronic history of dysphagia. Given patient's improvement in symptoms and the fact that he is well-managed and has had no recurrence of significant vomiting, I do feel that he is appropriate for discharge back to his nursing facility. Prescription for Zofran was given. He has not had significant pain that require opioid pain medication, so I do not feel strongly about prescribing pain medications for his pancreatitis.. At this time, patient was deemed to be appropriate for discharge. Strict return precautions were given should his symptoms worsen and he not be able to tolerate any feeds. Patient was discharged in stable condition back to nursing facility in stable condition. Transport was arranged. Critical Care Critical Care Time Critical Care Time: No
[2023-09-05 19:37] LABS: Basophils % 0.3 % (0.1-2.0); Eosinophils # 0.1 K/mm3 (0.0-0.4); Eosinophils % 0.9 % (0.1-12.0); Hematocrit 43.1 % (42.0-52.0); Hemoglobin 13.4 g/dL (14.1-18.0); Lymphocytes # 1.4 K/mm3 (0.7-4.5); Lymphocytes % 11.2 % (10-50); Mean Corpuscular HGB Conc 31.1 g/dL (31.8-35.4); Mean Corpuscular Volume 80.4 fl (80-94); Mean Platelet Volume 7.9 fl (7.4-10.4); Monocytes # 0.8 K/mm3 (0.1-1.0); Monocytes % 6.7 % (1.7-9.3); Neutrophils # 9.8 K/mm3 (1.8-7.8); Platelet Count 377 K/mm3 (142-424); Red Blood Count 5.36 M/mm3 (4.60-6.20); Red Cell Distribution Width 19.5 % (11.5-17.5); White Blood Count 12.1 K/mm3 (4.8-10.8)
[2023-09-05] MEDS: LACTATED RINGERS 1000ML 1,000 ML 999 ML IV (19:41)
[2023-09-05] MEDS: ACETAMINOPHEN 1,000MG/100ML VIAL 1000 MG IV (19:41)
[2023-09-05] MEDS: ONDANSETRON 4MG/2ML VIAL 4 MG IV ×2 (19:41→23:16)
[2023-09-05 19:58] LABS: Alanine Aminotransferase 30 U/L (12-78); Albumin Level 4.6 g/dl (3.5-5.0); Albumin/Globulin Ratio 1.2 (1.1-1.8); Alkaline Phosphatase 108 U/L (38-126); Anion Gap 14.6 mEq/L (5-15); Aspartate Amino Transferase 45 U/L (17-59); Bilirubin,Total 0.7 mg/dl (0.2-1.3); Blood Urea Nitrogen 17 mg/dl (9-20); Calcium 9.6 mg/dl (8.4-10.2); Carbon Dioxide 30 mmol/L (22.0-30.0); Chloride 93 mmol/L (98-107); Estimated Glomerular Filt Rate 165 ml/min (>60); GFR (African American) 200 ML/MIN (>60); Globulin 3.7 g/dL (1.3-3.2); Glucose 149 mg/dl (74-100); Potassium 4.6 mmoL/L (3.5-5.1); Sodium 133 mmol/L (136-145); Total Protein,Serum 8.3 g/dl (6.3-8.2)
[2023-09-05 20:00] LABS: Lipase 758 U/L (23-300)
[2023-09-05] MEDS: SODIUM CHLORIDE 0.9% 10ML SYR (RAD ONLY) 10 ML IV (20:10)
[2023-09-05] MEDS: IOPAMIDOL-370 (76%);100ML BOTTLE 75 ML IV (20:10)
[2023-09-05 20:25] LABS: Coronavirus 19, PCR Not Detected (NotDetected); Influenza A, PCR Not Detected (NotDetected); Influenza B, PCR Not Detected (NotDetected); Microscopic, Urine URINE MICROSCOPIC (MICROSCOPIC)
[2023-09-05 20:37] LABS: Appearance,Urine CLEAR (Clear); Bilirubin,Urine Negative (Negative); Blood, Urine Negative (Negative); Color,Urine YELLOW (Yellow); Glucose,Urine (UA) 1+ (Negative); Ketones,Urine Negative (Negative); Leukocyte Esterase,Urine Negative (Negative); Nitrate,Urine Negative (Negative); Protein,Urine Negative (Negative); Urobilinogen,Urine 0.2 EU/dl (0.2)
[2023-09-05 20:47] LABS: Amorphous Sediment,Urine 1+ /lpf; Bacteria,Urine Trace /lpf
--- NOTE | 2023-09-05 21:17 | PC.NURSE ---
Rounded on patient, assisted patient at this time.
[2023-09-05] MEDS: FAMOTIDINE 20MG/2ML VIAL 20 MG IV (23:16)
--- NOTE | 2023-09-05 23:49 | PC.NURSE ---
Report called to JEFFERY Nogueira at [facility].
[2023-09-06 01:02] VITALS: BP 150/88; PULSE 98; RESP 17; TEMP 36.6; O2SAT 99
== END 2023-09-06 01:03 ==
PROVIDERS: Emergency Provider Emergency Medicine; PCP Internal Medicine Adolescent Medicine
DX: K85.90 Acute pancreatitis without necrosis or infection, unspecified (principal); K20.90 Esophagitis, unspecified without bleeding; K22.2 Esophageal obstruction; R11.2 Nausea with vomiting, unspecified; R19.7 Diarrhea, unspecified
CPT/HCPCS: 74177; 80048; 80053; 81001; 83690; 85025; 87636; 96361; 96374; 96375; 96376; 99284; J0131; J2405; Q9967

== ENCOUNTER 2023-09-07 23:53 | Emergency (ER) | payer MEDICARE, MEDICAID, SELFPAY ==
[2023-09-07 23:48] VITALS: BP 118/90; PULSE 109; RESP 20; O2SAT 98
--- NOTE | 2023-09-07 23:49 | XR_ITS ---
PROCEDURE INFORMATION: Exam: XR Abdomen Exam date and time: 09/08/2023 1:01 AM Age: 68 years old Clinical indication: Other: Distention; Additional info: Abd distention TECHNIQUE: Imaging protocol: Radiologic exam of the abdomen. Views: Frontal supine view of the abdomen. 1 View. COMPARISON: CT ABDOMEN PELVIS W CON 09/05/2023 8:01 PM FINDINGS: Gastrointestinal tract: Paucity of bowel gas. Constipation. No bowel dilation. Bones/joints: Unremarkable. IMPRESSION: No acute findings.
[2023-09-07 23:53] VITALS: BP 118/90; PULSE 103; RESP 20; TEMP 37.1; O2SAT 97; BMI 22.1
[2023-09-08] VITALS: BP 145/91; PULSE 93; RESP 18; O2SAT 97
--- NOTE | 2023-09-08 00:12 | ED_ITS ---
Discharge Plan Disposition Patient Disposition: Home, Self-Care Prescriptions Prescriptions: No Action polyethylene glycol 3350 [Miralax] 17 gram/dose powder 17 g PO DAILY omeprazole 20 mg capsule,delayed release(DR/EC) 20 mg PO DAILY cholecalciferol (vitamin D3) 100 mcg (4,000 unit) capsule 100 mcg PO DAILY metoclopramide HCl 5 mg/5 mL solution 5 mg PO DAILY acetaminophen 500 mg capsule 500 mg PO Q6H PRN multivitamin Liquid 5 ml PO DAILY ondansetron 4 mg tablet,disintegrating 4 mg PO Q8H PRN (Reason: nausea and vomiting) 4 Days Qty: 12 0RF Activity Restrictions/Add. Instructions Additional Instructions/Restrictions: Your labs and imaging from recent visit were consistent with pancreatitis. Your history and exam during this visit is benign. No evidence of bowel obstruction or perforation. During ED stay. Given pancreatitis, recommend clear liquid diet for the next couple of days and gently reintroduced tube feeds. This will likely help your abdominal distention. You also have a fair amount of stool in your colon. Consider suppositories or enemas as needed to have daily soft stools. Clinical Impressions Clinical Impression: Abdominal distension Acute pancreatitis Qualifiers: Pancreatitis type: unspecified pancreatitis type Acute pancreatitis complication: no infection or necrosis Qualified Code(s): K85.90 - Acute pancreatitis without necrosis or infection, unspecified Instructions Patient Instructions: DI for Acute Abdominal Pain Discharge ED Provider: Jesus Chanel Adult HPI General Chief complaint: Recheck/Abnormal Lab/Rx Stated complaint: abd distention Time Seen by Provider: 09/08/23 00:00 Mode of Arrival: EMS Source of Information: Patient and EMS Limitations: No Limitations Description of Symptoms (Recalled from ER Triage Doc. by RN): Pt to ED via EMS from [facility]. Nurse from facility reports pt has had abd pain, nausea, and vomiting. Pts only complaint at this time is belly bloating and black stuff around G tube. Pt denies abd pain, N/V. Reports last BM was today. History of Present Illness HPI narrative: 68-year-old male with history of chronic esophagitis with G-tube placement, jail patient, presents with abdominal bloating and belching. He reports he has been belching a lot lately. He reports that his belly is mildly bloated. He denies any abdominal pain. He reports he had a small bowel movement earlier today. Continues to pass gas. Denies any urinary symptoms. Denies any chest pain. Patient was seen in ED a couple days ago and diagnosed with pancreatitis. Related Data Home Medications Medication Instructions Recorded Confirmed acetaminophen 500 mg capsule 500 mg PO Q6H PRN 09/08/20 08/26/21 cholecalciferol (vitamin D3) 100 100 mcg PO DAILY 09/08/20 08/26/21 mcg (4,000 unit) capsule metoclopramide HCl 5 mg/5 mL oral 5 mg PO DAILY 09/08/20 08/26/21 solution omeprazole 20 mg capsule,delayed 20 mg PO DAILY 09/08/20 08/26/21 release polyethylene glycol 3350 17 17 g PO DAILY 09/08/20 08/26/21 gram/dose oral powder (Miralax) multivitamin 5 ml PO DAILY 10/18/20 08/26/21 Previous Rx's Medication Instructions Recorded ondansetron 4 mg disintegrating 4 mg PO Q8H PRN nausea and 09/05/23 tablet vomiting 4 days #12 tabs Allergies Allergy/AdvReac Type Severity Reaction Status Date / Time No Known Allergies Allergy Verified 08/26/21 11:11 [facility] Disclaimer: The information contained in this section may have been updated after the patient was seen, as this information can be updated by other users. Social History Smoking Status: Never smoker alcohol intake: former substance use type: denies use current occupational status: disabled Travel in the last 8 weeks: None household members: caregiver housing: jail ROS Obtained: Yes All systems reviewed & no additional complaints except as documented Physical Exam General General appearance: alert and in no apparent distress Head Head exam: atraumatic and normocephalic Eye Eye exam: Present normal appearance, PERRL and EOMI ENT ENT exam: Present normal oropharynx and normal external ear exam Neck Neck exam: Present normal inspection and full ROM Chest Chest inspection: Present normal inspection and symmetric chest wall rise; Absent tenderness Respiratory Respiratory exam: Present normal lung sounds bilaterally; Absent respiratory distress Cardiovascular Cardiovascular exam: Present regular rate and normal rhythm Abdominal Exam Abdominal exam: Present soft and distention; Absent tenderness or guarding Comment: G-tube in place Extremities Exam Extremities exam: Present normal inspection; Absent edema or joint swelling Back Exam Back exam: Present normal inspection; Absent tenderness Neurological Exam Neurological exam: Present alert and oriented X3; Absent motor sensory deficit Psychiatric Psychiatric exam: Present normal affect and normal mood Skin Skin exam: Present warm, dry and normal color Lymphatic Lymphatic Findings: no adenopathy Medical Decision Making Medical Records Medical records reviewed: Yes I reviewed the patient's medical records. Deo Inquiry Pt receiving controlled substance: No Deo was queried for this patient: No Vital Signs: 09/07/23 23:48 09/07/23 23:53 09/08/23 00:00 Temperature 98.7 F Temperature Source Oral Pulse Rate 109 H 93 H Pulse Rate [Left Radial] 103 H Respiratory Rate 20 20 18 Blood Pressure 118/90 145/91 H Blood Pressure [Right Arm] 118/90 Blood Pressure Mean 97 108 Blood Pressure Mean [Right Arm] 99 Blood Pressure Source Blood Pressure Source [Right Arm] Automatic Cuff Blood Pressure Position Blood Pressure Position [Right Arm] Sitting 02 Sat by Pulse Oximetry 98 97 97 Oxygen Delivery Method Room Air Room Air Room Air 09/08/23 00:30 09/08/23 01:00 09/08/23 01:27 Temperature 98.7 F Temperature Source Oral Pulse Rate 90 84 99 H Pulse Rate [Left Radial] Respiratory Rate 20 16 20 Blood Pressure 119/76 133/81 133/81 Blood Pressure [Right Arm] Blood Pressure Mean 91 100 Blood Pressure Mean [Right Arm] Blood Pressure Source Automatic Cuff Blood Pressure Source [Right Arm] Blood Pressure Position Supine Blood Pressure Position [Right Arm] 02 Sat by Pulse Oximetry 99 98 Oxygen Delivery Method Room Air Room Air Room Air 09/08/23 01:27 Temperature 98.7 F Temperature Source Oral Pulse Rate Pulse Rate [Left Radial] 99 H Respiratory Rate 20 Blood Pressure Blood Pressure [Right Arm] 133/81 Blood Pressure Mean Blood Pressure Mean [Right Arm] 98 Blood Pressure Source Blood Pressure Source [Right Arm] Automatic Cuff Blood Pressure Position Blood Pressure Position [Right Arm] Supine 02 Sat by Pulse Oximetry 100 Oxygen Delivery Method Room Air Lab Data Lab results reviewed: Yes I reviewed the patient's lab results. Orders (Tests/Meds): ORDERS Category Date Time Status KUB (single view) [XR KUB] Stat Exams 09/07/23 23:49 Completed POCUS Point of Care (ER Only) Stat Exams 09/08/23 01:12 Stop Req Medical Decision Narrative: 68-year-old male with history of chronic G-tube presents with abdominal bloating today. Also reports increased belching. Denies any nausea or vomiting. Denies any abdominal pain. Patient was diagnosed with mild pancreatitis a couple of days ago. History was obtained interactive discussion with patient, EMS. On arrival, patient is [afebrile, hemodynamically stable, satting appropriately, alert, oriented x4, GCS 15], moving all extremities spontaneously. Full physical exam performed and significant for mild abdominal distention, nontender, not tense. Differential includes but is not limited to pancreatitis, bowel obstruction, constipation, ascites, ileus. Workup initiated including KUB. On re-evaluation, patient [remains afebrile, HD stable.] Continues to be abdominal pain-free. Imaging independently interpreted by me and significant for KUB with mild colonic stool burden, no evidence of ileus or bowel obstruction.. See radiology read for full review of final results. Lab work and CT imaging was considered, but deemed unnecessary due to no abdominal pain, relatively benign exam, normal bowel function, patient had assessment within the last couple of days. Given patient history, exam and workup, patient's bloating is most likely secondary to tube feeds in the setting of pancreatitis. No evidence of bowel obstruction. Mild constipation is likely also contributing, though patient is having normal stool output. Low concern for emergent pathology at this time. Recommend going to a clear liquid diet for the next couple of days and then slowly reintroducing tube feeds. Discharge back to nursing facility in stable condition. Procedures Risk/Benefits of Procedure(s) Were Explained: Yes Critical Care Critical Care Time Critical Care Time: No
[2023-09-08 00:30] VITALS: BP 119/76; PULSE 90; RESP 20; O2SAT 99
[2023-09-08 01:00] VITALS: BP 133/81; PULSE 84; RESP 16; O2SAT 98
--- NOTE | 2023-09-08 01:24 | PC.NURSE ---
Called [facility] and advised that the pt is ready for return transport back to [place]. NEHAL
[2023-09-08 01:27] VITALS: BP 133/81; PULSE 99; RESP 20; TEMP 37.1; O2SAT 100
== END 2023-09-08 01:45 | disposition home or self-care (01) ==
PROVIDERS: Emergency Provider Emergency Medicine
DX: K85.90 Acute pancreatitis without necrosis or infection, unspecified (principal); R14.0 Abdominal distension (gaseous)
CPT/HCPCS: 74018; 99283

== ENCOUNTER 2025-04-02 13:05 | Outpatient (CLI) | payer MEDICARE, MEDICAID, SELFPAY ==
[2025-04-02 13:59] LABS: Hematocrit 45.6 % (42.0-52.0); Hemoglobin 15.1 g/dL (14.1-18.0); Immature Granulocytes % 0.2 %; Mean Corpuscular HGB Conc 33.1 g/dL (31.8-35.4); Mean Corpuscular Hemoglobin 30.3 pg (27.0-31.2); Mean Corpuscular Volume 91.4 fl (80-94); Nucleated Red Blood Cells % 0 %; Platelet Count 263 K/mm3 (142-424); Red Blood Count 4.99 M/mm3 (4.60-6.20); Red Cell Distribution Width-SD 47.4 fL; White Blood Count 5.6 K/mm3 (4.8-10.8)
[2025-04-02 14:54] LABS: Alanine Aminotransferase 29 U/L (12-78); Albumin Level 4.0 g/dl (3.5-5.0); Albumin/Globulin Ratio 1.3 (1.1-1.8); Alkaline Phosphatase 143 U/L (38-126); Anion Gap 13.8 mEq/L (5-15); Aspartate Amino Transferase 36 U/L (17-59); Bilirubin,Total 0.8 mg/dl (0.2-1.3); Blood Urea Nitrogen 15 mg/dl (9-20); Calcium 9.5 mg/dl (8.4-10.2); Carbon Dioxide 29 mmol/L (22.0-30.0); Chloride 100 mmol/L (98-107); Creatinine,Serum 0.60 mg/dl (0.66-1.25); Estimated Glomerular Filt Rate 134 ml/min (>60); GFR (African American) 162 ML/MIN (>60); Globulin 3.2 g/dL (1.3-3.2); Glucose 106 mg/dl (74-100); Magnesium 1.9 mg/dl (1.6-2.3); Potassium 4.8 mmoL/L (3.5-5.1); Sodium 138 mmol/L (136-145); Total Protein,Serum 7.2 g/dl (6.3-8.2)
== END 2025-04-02 23:59 | disposition home or self-care (01) ==
LOC: LAB.DROPOF 13:11
PROVIDERS: PCP Nurse Practitioner Family; Visit Provider Nurse Practitioner Family
DX: K21.9 Gastro-esophageal reflux disease without esophagitis (principal); E83.42 Hypomagnesemia; E43 Unspecified severe protein-calorie malnutrition; J44.9 Chronic obstructive pulmonary disease, unspecified
CPT/HCPCS: 80053; 83735; 85025

== ENCOUNTER 2025-06-06 07:12 | Emergency (ER) | payer MEDICARE, SELFPAY ==
[2025-06-06] VITALS (7 sets, daily range): BP systolic 163–199; BP diastolic 95–103; PULSE 81–97; RESP 19; TEMP 37.1; O2SAT 97–98; BMI 22.2
--- NOTE | 2025-06-06 07:13 | PC.NURSE ---
i spoke with [facility] and they believe the pt had a size 22 g tube. they attempted to replace it after it came out but were unsuccessful. they did not have the g tube readily available to confirm sizing for me @ this time.
--- OUTSIDE RECORDS SUMMARY | 2025-06-06 07:32 | XMS_ITS | Clinical Summary ---
Author Organization Healthcare Address [address] [place] [address] Care Team Providers Care District Operations Manager Name Role Phone Brayden Duran MD Primary Care Provider [phone] Allergies No known active allergies Medications Wheat Dextrin (BENEFIBER DRINK MIX PO) 1 teaspoon by Per G Tube route 1 (one) time each day. Active Iglslt-ZtAnf-Ot Kvyk-KF-Vquxd (MULTIVITAMIN/M INERALS PO) 1 tablet by Per G Tube route 1 (one) time each day. Active potassium chloride CR (Klor-Con) 10 MEQ ER tablet Take 1 tablet (10 mEq) by mouth 1 (one) time each day. Do not crush, chew, or split. Active magnesium oxide (Mag-Ox) 400 (240 Mg) MG tablet 2 tablets (800 mg) by Per G Tube route 2 (two) times a day. Active polyethylene glycol (Miralax) 17 GM/SCOOP powder 17 g by Per G Tube route 2 (two) times a day. Active metoclopramide (Reglan) 5 MG tablet 1 tablet (5 mg) by Per G Tube route 4 (four) times a day. Active acetaminophen (Tylenol) 500 MG tablet 2 tablets (1,000 mg) by Per G Tube route if needed for pain or fever. Active lactulose (Chronulac) 10 GM/15ML solution 30 mL (20 g) by Per G Tube route if needed (bowel care). Active simethicone (Mylicon) 80 MG chewable tablet Chew 1 tablet (80 mg) every 8 (eight) hours if needed for flatulence. Active senna (Senokot) 8.6 MG tablet Take 1 tablet (8.6 mg) by mouth 2 (two) times a day. Active pantoprazole (Protonix) 40 MG EC tabletIndicatio ns:Esophageal stricture Take 1 tablet (40 mg) by mouth 2 (two) times a day before meals. Do not crush, chew, or split. 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 Esophageal stricture 02/17/2023 Achalasia 02/17/2023 COPD without exacerbation 02/17/2023 Moderate protein-calorie malnutrition 02/17/2023 Upper GI bleed 02/16/2023 Immunizations Immunization Administration Dates Next Due Influenza, injectable, quadrivalent, preservativ e free 07/28/2019 Pneumococcal Polysaccharide PPV23 12/14/2016 Tdap 04/24/2015,07/05/2014 Family History Medical History Relation Name Comments Conversions - Other Other Family h istory unknown Rectal cancer Sister 1 Family history of rectal cancer Breast cancer Sister 2 FH: breast can cer Relation Name Status Comments Other Sister 1 Sister 2 Social History Tobacco Use Types Packs/Day Years Used Date Smoking Tobacco: Never Passive Smoke Exposure: Never Smokeless Tobacco: Never Tobacco Cessation:Counseling Given: Not Answered Alcohol Use Standard Drinks/Week Comments Not Currently 0 (1 standard drink = 0.6 oz pure alcohol) Alcoholic Drinks/day: Alcoholism in recovery PHQ-2 Answer Date Recorded Patient Health Questionnaire-2 Score 0 05/12/2024 PHQ-9 Answer Date Recorded Patient Health Questionnaire-9 Score 0 05/12/2024 CAGE ASSESSMENT Answer Date Recorded Cage unable to access Not on file 02/17/2023 Cage max number of drinks Not on file 2022 Cage Beverages a week Not on file 02/17/2023 Have you ever felt you should CUT down on your d rinking? 0 02/17/2023 Have you been ANNOYED by people criticizing your drinking? 0 02/17/2023 Have you felt GUILTY about your drinking? 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 0 02/17/2023 CAGE Questionnaire Score 0 023 PHQ-2A Answer Date Recorded Patient Health Questionnaire-2 Score 0 03/21/2023 Sex and Gender Information Value Date Recorded Sex Assigned at Male 02/16/2023 5:43 PM EDT Legal Sex Male 8:28 PM EDT Gender Identity Male 02/16/2023 5:43 PM EDT Sexual Orientation Not on file Last Filed Vital Signs Vital Sign Reading Time Taken Comments Blood Pressure 150/92 02/09/2025 2:13 PM EDT patient states they feel fine and will monitor Pulse 85 02/09/2025 1:46 PM EDT Temperature 36.6 C (97.9 F) 05/12/2024 8:55 AM EST Respiratory Rate 16 05/12/2024 8:55 AM EST Oxygen Saturation 95% 02/09/2025 1:4 6 PM EDT Inhaled Oxygen Concentration - - Weight 63.5 kg (140 lb) 02/09/2025 1:46 PM EDT Height 167.6 cm (5' 6 ) 02/09/2025 1:46 PM EDT Body Mass Index 22.6 02/09/2025 1:46 PM EDT Plan of Treatment Upcoming Encounters Date Type Department Care Team (Late st Contact Info) Description 06/15/2025 12:10 PM EST [facility] Visit [facility] [address], [address] [place] [address] Shahnaz Baird K, [employer] TECHNICAL MANAGER [address] [place] [address] Health Maintenance Due Date Last Done Comments [facility]-Medicare Annual Wellness (AWV) 1955 [facility]-Infant/Child/Adol SDOH Screenings 1955 [facility]- SDOH Screenings 1973 [facility]-Adult SDOH Screenings 1973 CT Colonography 2000 FIT-DNA 2000 FIT 2000 FOBT 2000 Sigmoidoscopy 2000 [facility]-Zoster Vaccines (1 of 2) 2005 [facility]-Pneumococcal Vaccine: 50 + Years (2 of 2 - PCV) 12/14/2017 12/14/2016 [id number] Vaccine (3 - season) 2025 08/06/2020, 07/17/2020 [facility]-Influenza Vaccine (#1) 2025 07/28/2019 [facility]-DTaP,Tdap,and Td Vaccine s (3 - Td or Tdap) 04/24/2025 04/24/2015, 07/05/2014 [facility]-Depression Screening 05/12/2025 024, 05/12/2024 [facility]-RSV Vaccine: 60+ Years o r (1 - 1-dose 75+ series) 2030 Colonoscopy 05/10/2030 05/10/2020 [facility]-Colorectal Cancer Screening 05/10/2030 [facility]-Hepatitis C Screening Completed 2022, 01/29/2020, 07/18/2018 HPV Vaccines Aged Out No longer eligi ble based on patient's age to complete this topic [facility]-HIB Vaccines Aged Out No longer e ligible based on patient's age to complete this topic [facility]-Hepatitis A Vaccines Aged Out No longer eligible based on patient's age to complete this topic [facility]-IPV Vaccines Aged Out No longer e ligible based on patient's age to complete this topic [facility]-Rotavirus Vaccines Aged Out No lo nger eligible based on patient's age to complete this topic Procedures Procedure Name Priority Date/Time Associated Diagnosis Comments HEPATITIS C ANTIBODY - ED W/REFLEX TO HCV QUANT PCR STAT 02/16/2023 5:33 PM EDT COLONOSCOPY 05/10/2020 from Last 3 Months or Most Recently Relevant to Health Maintenance Results * Hepatitis C Antibody - ED (02/16/2023 5:33 PM EDT) Hepatitis C Antibody Negative Negative 02/16/2023 6:45 PM EDT [facility] Blood Venous blood specimen / Unknown Venipuncture / Unknown 02/16/2023 5:33 PM EDT 02/16/2023 6:04 PM EDT us Manfred Bautista MD LAB BLOOD ORDERABLES Final R [facility] [address] [place] [address] * COLONOSCOPY (05/10/2020) Anatomical Region Laterality Modality Endoscopy Narrative 05/10/2020 Ordered by an unspecified provider. 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 Yes Care Teams District Operations Manager Relationship Specialty Start Date End Date Brayden Duran MD [address] [place] [address] PCP - General 11/12/20
--- OUTSIDE RECORDS SUMMARY | 2025-06-06 07:32 | XMS_ITS | Encounter Summary ---
Author Organization Healthcare Address [address] [id number] Care Team Providers Care General Claims Agent Name Role Phone Brayden Duran MD Primary Care Provider [phone] Reason for Referral * Consultation (Routine) - Closed Specialty Diagnoses / Procedures Referred By Diane thomas Referred To Contact Hand Surgery Diagnoses Contracture of joint of right hand Sarah Boland APRN [address] [address] Phone: tel: fax: [facility] [address] [place] [address] Phone: tel: fax: Referral ID Status Reason Start Date Expiration Date V isits Requested Visits Authorized [id number] Closed Specialty Services Required 01/08/2025 07/10/2026 1 1 Encounter Details Date Type Department Care Team (Late st Contact Info) Description 01/08/2025 Community Orders Community Practice [address] [place] [address] Sarah Boland APRN [address] [address] Contracture of joint of right hand (Primary Dx) Social History Tobacco Use Types Packs/Day Years Used Date Smoking Tobacco: Never Passive Smoke Exposure: Never Smokeless Tobacco: Never Alcohol Use Standard Drinks/Week Comments Not Currently [...] 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 0 02/17/2023 CAGE Questionnaire Score 0 023 PHQ-2A Answer Date Recorded Patient Health Questionnaire-2 Score 0 03/21/2023 Sex and Gender Information Value Date Recorded Sex Assigned at Male 02/16/2023 5:43 PM EDT Legal Sex Male 8:28 PM EDT Gender Identity Male 02/16/2023 5:43 PM EDT Sexual Orientation Not on file documented as of this encounter Plan of Treatment Upcoming Encounters Date Type Department Care Team (Late st Contact Info) Description 06/15/2025 12:10 PM EST Office Visit [facility] [address] [place] [address] Shahnaz Baird K, DESIGN ENGINEERING INTERN [address] [place] [address] Scheduled Referrals Name Type Priority Associated Diagnoses Order Schedule Ambulatory referral to Hand Surgery Outpatient Referral Routine Contracture of joint of right hand Ordered: 01/08/2025 documented as of this encounter Visit Diagnoses Diagnosis Contracture of joint of right hand- Primary documented in this encounter Additional Health Concerns Assessment Noted Time PHQ-9 Depression Total Score: 0 05/12/20 8:57 AM EST A fall risk assessment has been complete d for the patient 05/12/2024 8:57 AM EST A Body Mass Index follow-up plan has been documented for the patient 05/12/2024 9:17 AM EST documented as of this encounter Care Teams General Claims Agent Relationship Specialty Start Date End Date Brayden Duran MD [address] [place] [address] PCP - General 11/12/20 documented as of this encounter
--- NOTE | 2025-06-06 07:50 | PC.NURSE ---
20 Fr gastric tube replaced pt tolerated procedure well KUB ordered to confirm placement
--- NOTE | 2025-06-06 07:52 | XR_ITS ---
PROCEDURE INFORMATION: Exam: XR Abdomen Exam date and time: 06/06/2025 7:56 AM Age: 70 years old Clinical indication: Device placement; Gi device; Peg tube; Additional info: G tube replacement need contrast TECHNIQUE: Imaging protocol: Radiologic exam of the abdomen. Views: Frontal supine view of the abdomen. 1 View. COMPARISON: CR XR KUB 09/08/2023 1:01 AM FINDINGS: Tubes, catheters and devices: Contrast is injected into gastrostomy tube and collects in the gastric lumen. There is also reflux of contrast into the distended esophagus and small hiatal hernia. No contrast extravasation evident. Gastrointestinal tract: There is no evidence of intestinal perforation or obstruction. Vasculature: There are numerous benign phleboliths in the pelvis. Bones/joints: Unremarkable. IMPRESSION: Contrast is injected into gastrostomy tube and collects in the gastric lumen. There is also reflux of contrast into the distended lower thoracic esophagus and small hiatal hernia.
--- NOTE | 2025-06-06 07:54 | HMH.EDGENADL ---
Discharge Plan Disposition Patient Disposition: Home, Self-Care Condition: Fair Prescriptions Prescriptions: No Action polyethylene glycol 3350 [Miralax] 17 gram/dose powder 17 g PO DAILY omeprazole 20 mg capsule,delayed release(DR/EC) 20 mg PO DAILY cholecalciferol (vitamin D3) 100 mcg (4,000 unit) capsule 100 mcg PO DAILY metoclopramide HCl 5 mg/5 mL solution 5 mg PO DAILY acetaminophen 500 mg capsule 500 mg PO Q6H PRN multivitamin Liquid 5 ml PO DAILY ondansetron 4 mg tablet,disintegrating 4 mg PO Q8H PRN (Reason: nausea and vomiting) 4 Days Qty: 12 0RF Referrals Follow up/Referrals: Sarah Boland APRN [Primary Care Provider, Medical] - See instructions Activity Restrictions/Add. Instructions Additional Instructions/Restrictions: We successfully replaced a 20 Greek 20 cc G-tube that was confirmed with x-ray with no extravasation outside of the stomach itself. It is safe to be used. Clinical Impressions Clinical Impression: Dislodged gastrostomy tube Instructions Patient Instructions: DI for Laceration Repair Print Language Print Language: Chinese Discharge ED Provider: Mckenna Anne General Adult HPI General Chief complaint: Wound/Laceration Stated complaint: G tube placement Time Seen by Provider: 06/06/25 07:44 Mode of Arrival: EMS Source of Information: Patient and EMS Description of Symptoms (Recalled from ER Triage Doc. by RN): pt presents to ED from [facility] for gt tubs dislodgement. pt A&O. pt reports that he was taking a shower and his tube fell out. pt reports that it has been loose for the past few days. pt reports he has had gtube for 4 years due to dysphagia. LUQ placement of tube. site clean and intact. pt states he is still able to drink liquids but unable to swallow pills or liquids History of Present Illness HPI narrative: 70-year-old male with a history of G-tube at a senior living states that it fell out yesterday. Has been loose recently. Still eat some but uses his G-tube a lot for nutrition. He denies any other symptoms. The senior living did not have the G-tube that he needed from a size standpoint. Related Data Home Medications ?Medication ?Instructions ?Recorded ?Confirmed acetaminophen 500 mg capsule 500 mg PO Q6H PRN 09/08/20 08/26/21 cholecalciferol (vitamin D3) 100 100 mcg PO DAILY 09/08/20 08/26/21 mcg (4,000 unit) capsule metoclopramide HCl 5 mg/5 mL oral 5 mg PO DAILY 09/08/20 08/26/21 solution omeprazole 20 mg capsule,delayed 20 mg PO DAILY 09/08/20 08/26/21 release polyethylene glycol 3350 17 17 g PO DAILY 09/08/20 08/26/21 gram/dose oral powder (Miralax) multivitamin 5 ml PO DAILY 10/18/20 08/26/21 Previous Rx's ?Medication ?Instructions ?Recorded ondansetron 4 mg disintegrating 4 mg PO Q8H PRN nausea and 09/05/23 tablet vomiting 4 days #12 tabs Allergies Allergy/AdvReac Type Severity Reaction Status Date / Time No Known Allergies Allergy Verified 08/26/21 11:11 [facility] Disclaimer: The information contained in this section may have been updated after the patient was seen, as this information can be updated by other users. Social History Smoking Status: Former smoker alcohol intake: former substance use type: denies use current occupational status: disabled Travel in the last 8 weeks?: None household members: caregiver housing: senior living Have you lived/traveled outside US in past 30 days?: No Contact w/someone who lives/traveled outside US past 30 days?: No Exposure to someone with infectious disease in past 14 days?: No Do you have a fever (greater than 100.4 F or 38 C)?: No Have you tested positive for COVID-19?: No Exposed to someone with COVID-19 in past 14 days?: No Do you have a sore throat?: No Do you have a cough?: No Do you have any weakness?: No Do you have any diarrhea?: No Are you experiencing any unusual bleeding?: No Do you have any muscle aches/pain?: No Do you have any abdominal pain?: No Are you experiencing loss of taste or smell?: No Other Medical History Have you received the Flu Vaccine for this season: No Have you received the Pneumonia Vaccine: Yes ROS Obtained: Yes All systems reviewed & no additional complaints except as documented Physical Exam General General appearance: alert and in no apparent distress Respiratory Respiratory exam: Present normal lung sounds bilaterally Cardiovascular Cardiovascular exam: Present regular rate Abdominal Exam Abdominal exam: Present soft and other (Opening for G-tube shows no significant pathologic erythema purulence tenderness etc.); Absent distention or tenderness Neurological Exam Neurological exam: Present alert and oriented X3 Medical Decision Making Medical Records Screening: Per USPSTF and CDC recommendations, given the prevalence of disease in our region, it is our hospital?s policy to screen for HIV and viral Hepatitis for all patients aged 18 and over and those with ongoing risk factors. Deo Inquiry Pt receiving controlled substance: No Vital Signs: 06/06/25 07:00 06/06/25 07:25 06/06/25 07:31 Temperature 98.7 F Temperature Source Oral Pulse Rate 97 H 94 H Pulse Rate [Left Radial] 81 Respiratory Rate 19 Blood Pressure 181/98 H 176/95 H Blood Pressure [Right Arm] 199/98 H Blood Pressure Mean [Right Arm] 131 02 Sat by Pulse Oximetry 97 97 97 Oxygen Delivery Method Room Air Room Air Room Air 06/06/25 08:00 06/06/25 08:30 06/06/25 09:01 Temperature Temperature Source Pulse Rate 85 89 94 H Pulse Rate [Left Radial] Respiratory Rate Blood Pressure 184/100 H 174/97 H 163/103 H Blood Pressure [Right Arm] Blood Pressure Mean [Right Arm] 02 Sat by Pulse Oximetry 97 98 97 Oxygen Delivery Method Room Air Room Air Room Air 06/06/25 10:32 Temperature 98.7 F Temperature Source Pulse Rate 94 H Pulse Rate [Left Radial] Respiratory Rate 19 Blood Pressure 163/103 H Blood Pressure [Right Arm] Blood Pressure Mean [Right Arm] 02 Sat by Pulse Oximetry Oxygen Delivery Method Room Air Orders (Tests/Meds): ED MEDICATIONS Discontinued Medications Generic Name Dose Route Start Last Admin Trade Name Freq PRN Reason Stop Dose Admin Diatrizoate Meglum/Diatrizoate Sod 30 ml 06/06/25 08:10 06/06/25 09:06 Diatrizoate Precious 66% & Diatrizoate Na 10% 30ml Udc FEED TUBE 06/06/25 08:11 30 ml ONCE ONE Administration Diatrizoate Meglum/Diatrizoate Sod 30 ml 06/06/25 09:06 06/06/25 09:07 Diatrizoate Precious 66% & Diatrizoate Na 10% 30ml Udc PO 06/06/25 09:07 Not Given ONCE ONE ORDERS Category Date Time Status KUB (single view) [XR KUB] Stat Exams 06/06/25 07:52 Completed Medical Decision Narrative: Patient with above history and physical G-tube was replaced KUB with Gastrografin was obtained which demonstrated contrast within the stomach itself without any extravasation. Patient safe to be discharged back to senior living. Procedures Feeding Tube Replacement Type of Tube: gastrostomy Insertion Site Prior to Procedure: clean Tube Used for Reinsertion: other (20 Greek 20 cc G-tube) Greek Tube Size (F): 20 Balloon size (mL): 20 Verification of Placement: KUB and gastrografin injection Tube Secured by: tape/dressing Patient Tolerated Procedure: well Critical Care Critical Care Time Critical Care Time: No
--- NOTE | 2025-06-06 08:04 | PC.NURSE ---
rad at bedside
--- NOTE | 2025-06-06 09:01 | PC.NURSE ---
attempted to call contacts listed in pts chart, no answer. pt is ready for discharge with no ride home.
[2025-06-06] MEDS: DIATRIZOATE MEG 66% & DIATRIZOATE NA 10% 30ML UDC 30 ML FEED TUBE (09:06)
--- NOTE | 2025-06-06 09:20 | PC.NURSE ---
call made to ems for assistance with pt transport home. no staff for care a van until medic comes in
--- NOTE | 2025-06-06 09:37 | PC.NURSE ---
received call from jose juan at [facility] , no way to transport pt back with ambulance due to pt not qualifying
--- NOTE | 2025-06-06 10:02 | PC.NURSE ---
call made to data architect manager of [facility], he is going to come in and transport pt back to facility via [facility]
== END 2025-06-06 10:34 | disposition home or self-care (01) ==
PROVIDERS: Emergency Provider Student in an Organized Health Care Education/Training Program; PCP Nurse Practitioner Family
DX: T85.528A Displacement of other gastrointestinal prosthetic devices, implants and grafts, initial encounter (principal)
CPT/HCPCS: 74018; 99283; Q9963